=== PATIENT | female | born 1970 | race Caucasian/White ===

== ENCOUNTER 2019-01-04 14:21 | Outpatient (CLI) | payer BC, MEDICARE ==
--- NOTE | 2019-01-04 15:32 | RAD ---
RIGHT KNEE FOUR VIEWS: INDICATIONS: Right knee pain. FINDINGS: No fracture or significant arthropathy. No joint capsular distention. IMPRESSION: No acute osseous abnormality of the right knee. POS: NWK
--- NOTE | 2019-01-04 15:36 | RAD ---
LEFT KNEE 4 VIEWS: INDICATION: Pain. FINDINGS: There is no fracture or dislocation. Mild joint capsular distention is present. There is minimal os teophytosis. IMPRESSION: 1. Mild joint capsular distention. 2. No acute fracture. POS: [id number]
== END 2019-01-04 14:22 | disposition home or self-care (01) ==
LOC: BICRAD 14:21
PROVIDERS: ATTEND Specialist
DX: M25.562 Pain in left knee (principal); M25.561 Pain in right knee

== ENCOUNTER 2021-09-03 11:19 | Outpatient (CLI) | payer MEDICARE, BC | END 2021-09-03 11:20 | disposition home or self-care (01) | LOC: BICULT 11:19 | PROVIDERS: ATTEND Specialist | DX: R79.89 Other specified abnormal findings of blood chemistry (principal); K76.0 Fatty (change of) liver, not elsewhere classified | CPT/HCPCS: 76700 ==